=== PATIENT | female | born 1965 | race Caucasian/White ===

== ENCOUNTER 2017-03-11 13:15 | Emergency (ER) | payer OTHER ==
[2017-03-11 17:08] LABS: ADD UMIC YES; UR ASCORBIC ACID NEGATIVE (NEGATIVE); UR BACTERIA FEW /HPF (NONE SEEN); UR BILIRUBIN (Dip) NEGATIVE (NEGATIVE); UR BLOOD (Dip) 1+ mg/dL (NEGATIVE); UR CLARITY SLIGHTLY CLOUDY (CLEAR); UR COLOR STRAW (YELLOW); UR GLUCOSE (Dip) NEGATIVE (NEGATIVE); UR KETONES (Dip) NEGATIVE (NEGATIVE); UR LEUKOCYTE ESTERASE (Dip) NEGATIVE Leu/ul (NEGATIVE); UR NITRITE (Dip) NEGATIVE (NEGATIVE); UR RBC 1 /HPF (0-5); UR SPECIFIC GRAVITY (Dip) 1.005 (1.003-1.030); UR SQUAMOUS EPITHELIAL CELL FEW /HPF (FEW); UR TOTAL PROTEIN (Dip) NEGATIVE (NEGATIVE); UR UROBILINOGEN (Dip) NEGATIVE (NEGATIVE); UR WBC 2 /HPF (0-5)
[2017-03-11] MEDS: SOD CHLORIDE 0.9% 1,000 ML IV (17:17)
[2017-03-11 17:28] LABS: ADD MAN DIFF? NO
[2017-03-11 17:36] LABS: WHITE BLOOD COUNT 6.4 10^3/ul (4.8-10.8)
[2017-03-11 17:36] LABS: BASOPHIL # 0.1 10^3/ul (0.0-0.1); BASOPHILS % 0.8 % (0.0-2.0); EOSINOPHILS # 0.2 10^3/ul (0.0-0.5); EOSINOPHILS % 3.5 % (0.0-7.0); HEMATOCRIT 40.9 % (37.0-47.0); HEMOGLOBIN 13.8 g/dl (12.0-16.0); LYMPHOCYTES # 2.5 10^3/ul (0.8-2.9); LYMPHOCYTES % 39.2 % (15.0-51.0); MEAN CORPUSCULAR HEMOGLOBIN 29.5 pg (29.0-33.0); MEAN CORPUSCULAR HGB CONC 33.7 g/dl (32.0-37.0); MEAN CORPUSCULAR VOLUME 87.4 fl (82.0-101.0); MEAN PLATELET VOLUME 10.3 fl (7.4-10.4); MONOCYTE # 0.4 10^3/ul (0.3-0.9); MONOCYTES % 6.6 % (0.0-11.0); NEUTROPHIL # 3.2 10^3/ul (1.6-7.5); NEUTROPHILS % 49.6 % (39.0-77.0); PLATELET COUNT 262 10^3/UL (140-415); RED BLOOD COUNT 4.68 10^6/ul (4.20-5.40); RED CELL DISTRIBUTION WIDTH 13.5 % (11.5-14.5)
[2017-03-11 18:05] LABS: ALANINE AMINOTRANSFERASE 25 IU/L (13-69); ALBUMIN 4.9 g/dl (3.3-4.9); ALKALINE PHOSPHATASE 101 IU/L (42-121); ANION GAP 16 (8-16); ASPARTATE AMINO TRANSFERASE 27 IU/L (15-46); BILIRUBIN,INDIRECT 0.2 mg/dl (0-1.1); BILIRUBIN,TOTAL 0.2 mg/dl (0.2-1.3); BLOOD UREA NITROGEN 15 mg/dl (7-20); CARBON DIOXIDE 26 mmol/L (21-31); CHLORIDE 105 mmol/L (97-110); CREATININE 0.81 mg/dl (0.44-1.00); GLUCOSE 93 mg/dl (70-220); LIPASE 101 U/L (23-300); POTASSIUM 3.7 mmol/L (3.5-5.1); SODIUM 143 mmol/L (135-144); TOTAL PROTEIN 8.4 g/dl (6.1-8.1)
[2017-03-11] MEDS: morphine 4 MG/ML VIAL IV (18:09)
== END 2017-03-11 19:24 | disposition home or self-care (01) ==
LOC: FTE 13:15
DX: K57.90 Diverticulosis of intestine, part unspecified, without perforation or abscess without bleeding (principal); R16.0 Hepatomegaly, not elsewhere classified; I10 Essential (primary) hypertension
CPT/HCPCS: 36415; 74176; 80053; 81001; 83690; 85025; 96374; 99285-25

== ENCOUNTER 2017-04-25 13:29 | Emergency (ER) | payer OTHER ==
[2017-04-25] MEDS ORDERED: LORAZEPAM 2 MG INJ (14:05)
[2017-04-25] MEDS: LORAZEPAM 2 MG INJ IV (14:07)
[2017-04-25 14:10] LABS: ADD MAN DIFF? NO
[2017-04-25 14:12] LABS: WHITE BLOOD COUNT 7.5 10^3/ul (4.8-10.8)
[2017-04-25 14:12] LABS: BASOPHIL # 0.1 10^3/ul (0.0-0.1); BASOPHILS % 0.8 % (0.0-2.0); EOSINOPHILS # 0.2 10^3/ul (0.0-0.5); EOSINOPHILS % 2.8 % (0.0-7.0); HEMATOCRIT 43.3 % (37.0-47.0); HEMOGLOBIN 14.3 g/dl (12.0-16.0); LYMPHOCYTES % 39.9 % (15.0-51.0); MEAN CORPUSCULAR HEMOGLOBIN 29.1 pg (29.0-33.0); MEAN CORPUSCULAR VOLUME 88.2 fl (82.0-101.0); MEAN PLATELET VOLUME 10.4 fl (7.4-10.4); MONOCYTE # 0.6 10^3/ul (0.3-0.9); MONOCYTES % 7.5 % (0.0-11.0); NEUTROPHIL # 3.6 10^3/ul (1.6-7.5); NEUTROPHILS % 48.3 % (39.0-77.0); PLATELET COUNT 278 10^3/UL (140-415); RED BLOOD COUNT 4.91 10^6/ul (4.20-5.40); RED CELL DISTRIBUTION WIDTH 12.9 % (11.5-14.5)
[2017-04-25 14:30] LABS: ALANINE AMINOTRANSFERASE 133 IU/L (13-69); ALBUMIN/GLOBULIN RATIO 1.38; ALKALINE PHOSPHATASE 125 IU/L (42-121); ANION GAP 21 (8-16); ASPARTATE AMINO TRANSFERASE 59 IU/L (15-46); BILIRUBIN,INDIRECT 0.2 mg/dl (0-1.1); BILIRUBIN,TOTAL 0.2 mg/dl (0.2-1.3); BLOOD UREA NITROGEN 16 mg/dl (7-20); CALCIUM 10.3 mg/dl (8.4-10.2); CARBON DIOXIDE 25 mmol/L (21-31); CHLORIDE 104 mmol/L (97-110); GLUCOSE 98 mg/dl (70-220); SODIUM 146 mmol/L (135-144); TOTAL PROTEIN 8.6 g/dl (6.1-8.1)
[2017-04-25] MEDS: SOD CHLORIDE 0.9% 1,000 ML IV (14:46)
[2017-04-25] MEDS: LEVETIRACETAM 1000 MG (PMX) 100 ML IVPB (15:14)
[2017-04-25 15:53] LABS: ADD UMIC YES; UR ASCORBIC ACID NEGATIVE (NEGATIVE); UR BILIRUBIN (Dip) NEGATIVE (NEGATIVE); UR BLOOD (Dip) 1+ mg/dL (NEGATIVE); UR CLARITY CLEAR (CLEAR); UR COLOR STRAW (YELLOW); UR GLUCOSE (Dip) NEGATIVE (NEGATIVE); UR KETONES (Dip) NEGATIVE (NEGATIVE); UR LEUKOCYTE ESTERASE (Dip) NEGATIVE Leu/ul (NEGATIVE); UR NITRITE (Dip) NEGATIVE (NEGATIVE); UR RBC 1 /HPF (0-5); UR SPECIFIC GRAVITY (Dip) 1.008 (1.003-1.030); UR TOTAL PROTEIN (Dip) NEGATIVE (NEGATIVE); UR UROBILINOGEN (Dip) NEGATIVE (NEGATIVE); UR WBC 1 /HPF (0-5)
== END 2017-04-25 17:03 | disposition home or self-care (01) ==
LOC: E/R 13:29
DX: R56.9 Unspecified convulsions (principal); R74.0 Nonspecific elevation of levels of transaminase and lactic acid dehydrogenase [LDH]; E87.2 Acidosis; I10 Essential (primary) hypertension; E03.9 Hypothyroidism, unspecified; Z79.82 Long term (current) use of aspirin
CPT/HCPCS: 36415; 70450; 71045; 80053; 81001; 82962; 85025; 96374; 96375; 99285-25

== ENCOUNTER 2017-05-11 17:12 | Emergency (ER) | payer OTHER ==
[2017-05-11] MEDS: SOD CHLORIDE 0.9% 1,000 ML IV (18:09)
[2017-05-11] MEDS: LORAZEPAM 2 MG INJ IV (18:09)
[2017-05-11] MEDS: LEVETIRACETAM 1000 MG (PMX) 100 ML IVPB (18:53)
[2017-05-11 19:03] LABS: ADD MAN DIFF? NO
[2017-05-11 19:06] LABS: BASOPHIL # 0.1 10^3/ul (0.0-0.1); BASOPHILS % 0.6 % (0.0-2.0); EOSINOPHILS # 0.2 10^3/ul (0.0-0.5); EOSINOPHILS % 2.1 % (0.0-7.0); HEMATOCRIT 38.6 % (37.0-47.0); HEMOGLOBIN 12.8 g/dl (12.0-16.0); LYMPHOCYTES # 2.1 10^3/ul (0.8-2.9); LYMPHOCYTES % 22.1 % (15.0-51.0); MEAN CORPUSCULAR HEMOGLOBIN 29.6 pg (29.0-33.0); MEAN CORPUSCULAR HGB CONC 33.2 g/dl (32.0-37.0); MEAN CORPUSCULAR VOLUME 89.1 fl (82.0-101.0); MEAN PLATELET VOLUME 10.5 fl (7.4-10.4); MONOCYTE # 0.7 10^3/ul (0.3-0.9); MONOCYTES % 7.7 % (0.0-11.0); NEUTROPHIL # 6.4 10^3/ul (1.6-7.5); NEUTROPHILS % 67.2 % (39.0-77.0); PLATELET COUNT 265 10^3/UL (140-415); RED BLOOD COUNT 4.33 10^6/ul (4.20-5.40); RED CELL DISTRIBUTION WIDTH 12.6 % (11.5-14.5)
[2017-05-11 19:06] LABS: WHITE BLOOD COUNT 9.5 10^3/ul (4.8-10.8)
[2017-05-11 19:27] LABS: INR 0.91; PROTIME 12.3 Sec (11.9-14.9)
[2017-05-11 19:28] LABS: PARTIAL THROMBOPLASTIN TIME 31.1 Sec (25.0-35.0)
[2017-05-11 19:30] LABS: ALANINE AMINOTRANSFERASE 67 IU/L (13-69); ALBUMIN 4.3 g/dl (3.3-4.9); ALBUMIN/GLOBULIN RATIO 1.34; ALKALINE PHOSPHATASE 109 IU/L (42-121); ANION GAP 20 (8-16); ASPARTATE AMINO TRANSFERASE 30 IU/L (15-46); BILIRUBIN,INDIRECT 0.1 mg/dl (0-1.1); BILIRUBIN,TOTAL 0.1 mg/dl (0.2-1.3); BLOOD UREA NITROGEN 19 mg/dl (7-20); CALCIUM 9.2 mg/dl (8.4-10.2); CARBON DIOXIDE 22 mmol/L (21-31); CHLORIDE 109 mmol/L (97-110); CREATININE 0.95 mg/dl (0.44-1.00); GLUCOSE 105 mg/dl (70-220); POTASSIUM 4.2 mmol/L (3.5-5.1); SODIUM 147 mmol/L (135-144); TOTAL PROTEIN 7.5 g/dl (6.1-8.1)
[2017-05-11 19:33] LABS: ETHANOL < 10.0 mg/dl
[2017-05-11 19:42] LABS: TROPONIN-I < 0.012 ng/ml (0.00-0.12)
[2017-05-11] MEDS: KETOROLAC 30 MG INJ IV (23:14)
== END 2017-05-11 23:38 | disposition home or self-care (01) ==
LOC: E/R 23:38
DX: R56.9 Unspecified convulsions (principal); I10 Essential (primary) hypertension; R07.9 Chest pain, unspecified; Z79.82 Long term (current) use of aspirin
CPT/HCPCS: 70450; 80053; 80306; 84484; 85025; 85610; 85730; 93005; 96374; 96375; 99285-25

== ENCOUNTER 2017-05-23 02:08 | Inpatient (IN) | payer OTHER ==
[2017-05-23] MEDS ORDERED: LORAZEPAM 2 MG INJ (02:19)
[2017-05-23] MEDS: LORAZEPAM 2 MG INJ IV ×2 (02:39→17:02)
[2017-05-23] MEDS: LEVETIRACETAM 1000 MG (PMX) 100 ML IVPB (02:46)
[2017-05-23 03:20] LABS: ADD MAN DIFF? NO
[2017-05-23 03:22] LABS: WHITE BLOOD COUNT 7.2 10^3/ul (4.8-10.8)
[2017-05-23 03:22] LABS: BASOPHIL # 0.1 10^3/ul (0.0-0.1); BASOPHILS % 0.8 % (0.0-2.0); EOSINOPHILS # 0.4 10^3/ul (0.0-0.5); EOSINOPHILS % 5.2 % (0.0-7.0); HEMOGLOBIN 12.5 g/dl (12.0-16.0); LYMPHOCYTES # 2.9 10^3/ul (0.8-2.9); LYMPHOCYTES % 40.7 % (15.0-51.0); MEAN CORPUSCULAR HEMOGLOBIN 29.3 pg (29.0-33.0); MEAN CORPUSCULAR HGB CONC 32.9 g/dl (32.0-37.0); MEAN PLATELET VOLUME 10.6 fl (7.4-10.4); MONOCYTE # 0.6 10^3/ul (0.3-0.9); NEUTROPHIL # 3.2 10^3/ul (1.6-7.5); NEUTROPHILS % 45.2 % (39.0-77.0); PLATELET COUNT 231 10^3/UL (140-415); RED BLOOD COUNT 4.27 10^6/ul (4.20-5.40); RED CELL DISTRIBUTION WIDTH 12.9 % (11.5-14.5)
[2017-05-23 03:50] LABS: ANION GAP 16 (8-16); BLOOD UREA NITROGEN 18 mg/dl (7-20); CALCIUM 9.4 mg/dl (8.4-10.2); CARBON DIOXIDE 25 mmol/L (21-31); CHLORIDE 110 mmol/L (97-110); CREATININE 0.71 mg/dl (0.44-1.00); GLUCOSE 92 mg/dl (70-220); POTASSIUM 3.8 mmol/L (3.5-5.1); SODIUM 147 mmol/L (135-144)
[2017-05-23] MEDS ORDERED: NACL 0.9% 3 ML SYG IV (07:30)
[2017-05-23] MEDS ORDERED: ALBUTEROL/IPRATROPIUM (NEB) 3 ML AMP HHN (07:30)
[2017-05-23] MEDS ORDERED: LEVETIRACETAM 750 MG TAB PO ×2 (09:00→21:00)
[2017-05-23] MEDS: LOSARTAN 50 MG TAB PO (09:38)
[2017-05-23] MEDS: ASPIRIN (EC) 81 MG TAB PO (09:39)
[2017-05-23] MEDS: ACETAMINOPHEN 325 MG TAB PO (09:44)
[2017-05-23] MEDS: LEVETIRACETAM 750 MG TAB PO (11:01)
[2017-05-23] MEDS ORDERED: TOPIRAMATE SPRINKLE 25 MG CAP PO (21:00)
[2017-05-23] MEDS: LEVETIRACETAM 500 MG TAB PO (21:33)
[2017-05-23] MEDS: TOPIRAMATE SPRINKLE 25 MG CAP PO (23:33)
[2017-05-24] MEDS: LEVOTHYROXINE 50 MCG TAB PO (06:04)
[2017-05-24] MEDS: LOSARTAN 50 MG TAB PO (08:37)
[2017-05-24] MEDS: LEVETIRACETAM 500 MG TAB PO ×2 (08:37→20:18)
[2017-05-24] MEDS: ASPIRIN (EC) 81 MG TAB PO (08:37)
[2017-05-24 08:57] LABS: ADD MAN DIFF? NO
[2017-05-24 08:58] LABS: BASOPHILS % 0.6 % (0.0-2.0); EOSINOPHILS # 0.3 10^3/ul (0.0-0.5); EOSINOPHILS % 5.1 % (0.0-7.0); HEMATOCRIT 42.9 % (37.0-47.0); HEMOGLOBIN 13.9 g/dl (12.0-16.0); LYMPHOCYTES # 2.2 10^3/ul (0.8-2.9); LYMPHOCYTES % 35.4 % (15.0-51.0); MEAN CORPUSCULAR HGB CONC 32.4 g/dl (32.0-37.0); MEAN CORPUSCULAR VOLUME 89.6 fl (82.0-101.0); MEAN PLATELET VOLUME 10.7 fl (7.4-10.4); MONOCYTE # 0.4 10^3/ul (0.3-0.9); MONOCYTES % 6.7 % (0.0-11.0); NEUTROPHIL # 3.3 10^3/ul (1.6-7.5); NEUTROPHILS % 51.9 % (39.0-77.0); PLATELET COUNT 256 10^3/UL (140-415); RED BLOOD COUNT 4.79 10^6/ul (4.20-5.40); RED CELL DISTRIBUTION WIDTH 12.8 % (11.5-14.5)
[2017-05-24 08:58] LABS: WHITE BLOOD COUNT 6.3 10^3/ul (4.8-10.8)
[2017-05-24 09:33] LABS: ALANINE AMINOTRANSFERASE 49 IU/L (13-69); ALBUMIN 4.3 g/dl (3.3-4.9); ALKALINE PHOSPHATASE 97 IU/L (42-121); ANION GAP 16 (8-16); ASPARTATE AMINO TRANSFERASE 30 IU/L (15-46); BILIRUBIN,INDIRECT 0.2 mg/dl (0-1.1); BILIRUBIN,TOTAL 0.2 mg/dl (0.2-1.3); BLOOD UREA NITROGEN 18 mg/dl (7-20); CALCIUM 9.6 mg/dl (8.4-10.2); CARBON DIOXIDE 26 mmol/L (21-31); CHLORIDE 108 mmol/L (97-110); CHOL/HDL RATIO 3.3 RATIO; CHOLESTEROL 203 mg/dl (100-200); CREATININE 0.73 mg/dl (0.44-1.00); GLUCOSE 80 mg/dl (70-220); HDL CHOLESTEROL 60 mg/dl (37-92); LDL CHOLESTEROL,CALCULATED 118 mg/dl; MAGNESIUM 1.9 mg/dl (1.7-2.5); POTASSIUM 3.7 mmol/L (3.5-5.1); SODIUM 146 mmol/L (135-144); TOTAL PROTEIN 7.6 g/dl (6.1-8.1); TRIGLYCERIDES 126 mg/dl (0-149)
[2017-05-24 10:18] LABS: HEMOGLOBIN A1C 5.5 % (0-5.9)
[2017-05-24] MEDS: LORAZEPAM 2 MG INJ IV (13:35)
[2017-05-24] MEDS: morphine 2 MG INJ IV (19:46)
[2017-05-24] MEDS: ACETAMINOPHEN 325 MG TAB PO (20:18)
[2017-05-24] MEDS: TOPIRAMATE 25 MG TAB PO (20:19)
[2017-05-25] MEDS: LEVOTHYROXINE 50 MCG TAB PO (06:32)
[2017-05-25] MEDS: LOSARTAN 50 MG TAB PO (09:08)
[2017-05-25] MEDS: LEVETIRACETAM 500 MG TAB PO ×2 (09:08→20:37)
[2017-05-25] MEDS: ASPIRIN (EC) 81 MG TAB PO (09:08)
[2017-05-25 09:10] LABS: ADD MAN DIFF? NO
[2017-05-25 09:13] LABS: WHITE BLOOD COUNT 6.4 10^3/ul (4.8-10.8)
[2017-05-25 09:13] LABS: BASOPHIL # 0.1 10^3/ul (0.0-0.1); BASOPHILS % 0.8 % (0.0-2.0); EOSINOPHILS # 0.3 10^3/ul (0.0-0.5); EOSINOPHILS % 5.2 % (0.0-7.0); HEMATOCRIT 40.1 % (37.0-47.0); LYMPHOCYTES # 2.4 10^3/ul (0.8-2.9); LYMPHOCYTES % 36.9 % (15.0-51.0); MEAN CORPUSCULAR HGB CONC 32.4 g/dl (32.0-37.0); MEAN CORPUSCULAR VOLUME 89.3 fl (82.0-101.0); MEAN PLATELET VOLUME 10.2 fl (7.4-10.4); MONOCYTE # 0.5 10^3/ul (0.3-0.9); MONOCYTES % 7.7 % (0.0-11.0); NEUTROPHIL # 3.1 10^3/ul (1.6-7.5); NEUTROPHILS % 49.1 % (39.0-77.0); PLATELET COUNT 253 10^3/UL (140-415); RED BLOOD COUNT 4.49 10^6/ul (4.20-5.40); RED CELL DISTRIBUTION WIDTH 12.7 % (11.5-14.5)
[2017-05-25] MEDS: TOPIRAMATE 25 MG TAB PO ×2 (09:13→20:37)
[2017-05-25 09:37] LABS: ANION GAP 16 (8-16); BLOOD UREA NITROGEN 21 mg/dl (7-20); CALCIUM 9.5 mg/dl (8.4-10.2); CARBON DIOXIDE 22 mmol/L (21-31); CHLORIDE 111 mmol/L (97-110); CREATININE 0.72 mg/dl (0.44-1.00); GLUCOSE 94 mg/dl (70-220); POTASSIUM 3.9 mmol/L (3.5-5.1); SODIUM 145 mmol/L (135-144)
[2017-05-25] MEDS: ACETAMINOPHEN 325 MG TAB PO (16:29)
[2017-05-25] MEDS: FOSPHENYTOIN (PE) 1,000 MG in SOD CHLORIDE 0.9% 80 ML IVPB (18:46)
[2017-05-25] MEDS: PHENYTOIN 100 MG CAP PO (20:37)
[2017-05-26] MEDS: LORAZEPAM 2 MG INJ IV (00:12)
[2017-05-26] MEDS: LEVOTHYROXINE 50 MCG TAB PO (07:32)
[2017-05-26] MEDS: ASPIRIN (EC) 81 MG TAB PO (08:32)
[2017-05-26] MEDS: PHENYTOIN 100 MG CAP PO ×3 (08:32→21:06)
[2017-05-26] MEDS: LEVETIRACETAM 500 MG TAB PO ×2 (08:32→21:06)
[2017-05-26] MEDS: TOPIRAMATE 25 MG TAB PO (08:33)
[2017-05-26] MEDS: LOSARTAN 50 MG TAB PO (08:33)
[2017-05-26 08:56] LABS: ADD MAN DIFF? NO
[2017-05-26 09:05] LABS: WHITE BLOOD COUNT 6.5 10^3/ul (4.8-10.8)
[2017-05-26 09:05] LABS: BASOPHIL # 0.1 10^3/ul (0.0-0.1); BASOPHILS % 1.1 % (0.0-2.0); EOSINOPHILS # 0.3 10^3/ul (0.0-0.5); EOSINOPHILS % 4.8 % (0.0-7.0); HEMATOCRIT 40.8 % (37.0-47.0); HEMOGLOBIN 13.6 g/dl (12.0-16.0); LYMPHOCYTES # 1.3 10^3/ul (0.8-2.9); LYMPHOCYTES % 19.3 % (15.0-51.0); MEAN CORPUSCULAR HGB CONC 33.3 g/dl (32.0-37.0); MEAN PLATELET VOLUME 10.3 fl (7.4-10.4); MONOCYTE # 0.5 10^3/ul (0.3-0.9); NEUTROPHIL # 4.3 10^3/ul (1.6-7.5); NEUTROPHILS % 66.6 % (39.0-77.0); PLATELET COUNT 245 10^3/UL (140-415); RED BLOOD COUNT 4.69 10^6/ul (4.20-5.40); RED CELL DISTRIBUTION WIDTH 12.9 % (11.5-14.5)
[2017-05-26 09:28] LABS: ANION GAP 18 (8-16); BLOOD UREA NITROGEN 15 mg/dl (7-20); CALCIUM 9.4 mg/dl (8.4-10.2); CARBON DIOXIDE 21 mmol/L (21-31); CHLORIDE 110 mmol/L (97-110); CREATININE 0.74 mg/dl (0.44-1.00); GLUCOSE 85 mg/dl (70-220); POTASSIUM 4.2 mmol/L (3.5-5.1); SODIUM 145 mmol/L (135-144)
[2017-05-26] MEDS ORDERED: TOPIRAMATE 25 MG TAB PO (21:00)
[2017-05-26] MEDS: ACETAMINOPHEN 325 MG TAB PO (21:07)
[2017-05-26] MEDS: TOPIRAMATE 100 MG TAB PO (21:33)
[2017-05-27] MEDS: LEVOTHYROXINE 50 MCG TAB PO (06:44)
[2017-05-27 06:55] LABS: ADD MAN DIFF? NO
[2017-05-27 07:03] LABS: BASOPHIL # 0.1 10^3/ul (0.0-0.1); BASOPHILS % 0.8 % (0.0-2.0); EOSINOPHILS # 0.6 10^3/ul (0.0-0.5); EOSINOPHILS % 8.9 % (0.0-7.0); HEMATOCRIT 41.7 % (37.0-47.0); HEMOGLOBIN 13.6 g/dl (12.0-16.0); LYMPHOCYTES # 1.9 10^3/ul (0.8-2.9); LYMPHOCYTES % 28.9 % (15.0-51.0); MEAN CORPUSCULAR HEMOGLOBIN 28.9 pg (29.0-33.0); MEAN CORPUSCULAR HGB CONC 32.6 g/dl (32.0-37.0); MEAN CORPUSCULAR VOLUME 88.7 fl (82.0-101.0); MEAN PLATELET VOLUME 10.3 fl (7.4-10.4); MONOCYTE # 0.7 10^3/ul (0.3-0.9); MONOCYTES % 10.2 % (0.0-11.0); NEUTROPHIL # 3.4 10^3/ul (1.6-7.5); PLATELET COUNT 244 10^3/UL (140-415); RED CELL DISTRIBUTION WIDTH 12.8 % (11.5-14.5)
[2017-05-27 07:03] LABS: WHITE BLOOD COUNT 6.6 10^3/ul (4.8-10.8)
[2017-05-27 07:18] LABS: ANION GAP 17 (8-16); BLOOD UREA NITROGEN 23 mg/dl (7-20); CALCIUM 9.3 mg/dl (8.4-10.2); CARBON DIOXIDE 20 mmol/L (21-31); CHLORIDE 114 mmol/L (97-110); CREATININE 0.82 mg/dl (0.44-1.00); GLUCOSE 99 mg/dl (70-220); POTASSIUM 4.4 mmol/L (3.5-5.1); SODIUM 147 mmol/L (135-144)
[2017-05-27 07:24] LABS: MAGNESIUM 2.1 mg/dl (1.7-2.5)
[2017-05-27 07:24] LABS: PHOSPHORUS 3.7 mg/dl (2.5-4.9)
[2017-05-27] MEDS: LOSARTAN 50 MG TAB PO (08:57)
[2017-05-27] MEDS: LEVETIRACETAM 500 MG TAB PO ×2 (08:59→20:42)
[2017-05-27] MEDS: PHENYTOIN 100 MG CAP PO ×3 (08:59→20:41)
[2017-05-27] MEDS: ASPIRIN (EC) 81 MG TAB PO (09:00)
[2017-05-27] MEDS: TOPIRAMATE 100 MG TAB PO ×2 (09:06→20:41)
[2017-05-27] MEDS: LORAZEPAM 2 MG INJ IV (10:52)
[2017-05-27] MEDS: morphine 2 MG INJ IV (12:50)
[2017-05-28] MEDS: morphine 2 MG INJ IV ×2 (00:17→09:28)
[2017-05-28 06:03] LABS: ADD MAN DIFF? NO
[2017-05-28 06:06] LABS: WHITE BLOOD COUNT 7.5 10^3/ul (4.8-10.8)
[2017-05-28 06:06] LABS: BASOPHIL # 0.1 10^3/ul (0.0-0.1); BASOPHILS % 0.7 % (0.0-2.0); EOSINOPHILS # 0.5 10^3/ul (0.0-0.5); HEMATOCRIT 40.7 % (37.0-47.0); HEMOGLOBIN 13.2 g/dl (12.0-16.0); LYMPHOCYTES # 2.6 10^3/ul (0.8-2.9); LYMPHOCYTES % 34.2 % (15.0-51.0); MEAN CORPUSCULAR HGB CONC 32.4 g/dl (32.0-37.0); MEAN CORPUSCULAR VOLUME 89.5 fl (82.0-101.0); MEAN PLATELET VOLUME 10.2 fl (7.4-10.4); MONOCYTE # 0.7 10^3/ul (0.3-0.9); NEUTROPHIL # 3.7 10^3/ul (1.6-7.5); PLATELET COUNT 249 10^3/UL (140-415); RED BLOOD COUNT 4.55 10^6/ul (4.20-5.40); RED CELL DISTRIBUTION WIDTH 12.8 % (11.5-14.5)
[2017-05-28] MEDS: LEVOTHYROXINE 50 MCG TAB PO (06:17)
[2017-05-28 06:21] LABS: ANION GAP 16 (8-16); BLOOD UREA NITROGEN 22 mg/dl (7-20); CALCIUM 9.3 mg/dl (8.4-10.2); CARBON DIOXIDE 23 mmol/L (21-31); CHLORIDE 112 mmol/L (97-110); CREATININE 0.94 mg/dl (0.44-1.00); GLUCOSE 85 mg/dl (70-220); POTASSIUM 4.9 mmol/L (3.5-5.1); SODIUM 146 mmol/L (135-144)
[2017-05-28] MEDS: TOPIRAMATE 100 MG TAB PO ×2 (09:28→20:22)
[2017-05-28] MEDS: LEVETIRACETAM 500 MG TAB PO ×2 (09:28→20:22)
[2017-05-28] MEDS: LOSARTAN 50 MG TAB PO (09:29)
[2017-05-28] MEDS: PHENYTOIN 100 MG CAP PO ×3 (09:29→20:22)
[2017-05-28] MEDS: ASPIRIN (EC) 81 MG TAB PO (09:29)
[2017-05-28] MEDS: LORAZEPAM 2 MG INJ IV (10:11)
[2017-05-28] MEDS: morphine LIQ (10 MG/5 ML) CUP PO (23:21)
[2017-05-29] MEDS: LORAZEPAM 2 MG INJ IV ×2 (03:23→03:42)
[2017-05-29] MEDS: LEVETIRACETAM 500 MG (PMX) 100 ML IVPB (04:12)
[2017-05-29 05:54] LABS: ADD MAN DIFF? NO
[2017-05-29 05:59] LABS: WHITE BLOOD COUNT 5.6 10^3/ul (4.8-10.8)
[2017-05-29 05:59] LABS: BASOPHIL # 0.1 10^3/ul (0.0-0.1); BASOPHILS % 1.3 % (0.0-2.0); EOSINOPHILS # 0.4 10^3/ul (0.0-0.5); EOSINOPHILS % 7.4 % (0.0-7.0); HEMATOCRIT 40.5 % (37.0-47.0); HEMOGLOBIN 13.5 g/dl (12.0-16.0); LYMPHOCYTES % 35.6 % (15.0-51.0); MEAN CORPUSCULAR HEMOGLOBIN 29.4 pg (29.0-33.0); MEAN CORPUSCULAR HGB CONC 33.3 g/dl (32.0-37.0); MEAN CORPUSCULAR VOLUME 88.2 fl (82.0-101.0); MEAN PLATELET VOLUME 10.1 fl (7.4-10.4); MONOCYTE # 0.5 10^3/ul (0.3-0.9); MONOCYTES % 8.5 % (0.0-11.0); NEUTROPHIL # 2.6 10^3/ul (1.6-7.5); PLATELET COUNT 230 10^3/UL (140-415); RED BLOOD COUNT 4.59 10^6/ul (4.20-5.40); RED CELL DISTRIBUTION WIDTH 12.9 % (11.5-14.5)
[2017-05-29 06:19] LABS: MAGNESIUM 1.9 mg/dl (1.7-2.5)
[2017-05-29 06:19] LABS: PHOSPHORUS 4.1 mg/dl (2.5-4.9)
[2017-05-29] MEDS: LEVOTHYROXINE 50 MCG TAB PO (06:35)
[2017-05-29 06:49] LABS: ANION GAP 16 (8-16); BLOOD UREA NITROGEN 19 mg/dl (7-20); CALCIUM 9.3 mg/dl (8.4-10.2); CARBON DIOXIDE 22 mmol/L (21-31); CHLORIDE 110 mmol/L (97-110); CREATININE 0.77 mg/dl (0.44-1.00); GLUCOSE 89 mg/dl (70-220); POTASSIUM 3.8 mmol/L (3.5-5.1); SODIUM 144 mmol/L (135-144)
[2017-05-29 08:53] LABS: PHENYTOIN (DILANTIN) 7.8 ug/ml (10.0-20.0)
[2017-05-29] MEDS: LEVETIRACETAM 500 MG TAB PO ×2 (10:09→21:16)
[2017-05-29] MEDS: ONDANSETRON 4 MG INJ IV (10:09)
[2017-05-29] MEDS: ASPIRIN (EC) 81 MG TAB PO (10:10)
[2017-05-29] MEDS: TOPIRAMATE 100 MG TAB PO ×2 (10:10→22:34)
[2017-05-29] MEDS: PHENYTOIN 100 MG CAP PO ×3 (10:10→21:16)
[2017-05-29] MEDS: LOSARTAN 50 MG TAB PO (10:16)
[2017-05-29] MEDS: morphine LIQ (10 MG/5 ML) CUP PO (21:16)
[2017-05-30] MEDS: LEVOTHYROXINE 50 MCG TAB PO (06:15)
[2017-05-30] MEDS: morphine LIQ (10 MG/5 ML) CUP PO (08:16)
[2017-05-30] MEDS: LOSARTAN 50 MG TAB PO (09:00)
[2017-05-30] MEDS: PHENYTOIN 100 MG CAP PO ×3 (09:18→21:04)
[2017-05-30] MEDS: LEVETIRACETAM 500 MG TAB PO ×2 (09:18→21:04)
[2017-05-30] MEDS: ASPIRIN (EC) 81 MG TAB PO (09:18)
[2017-05-30] MEDS: TOPIRAMATE 100 MG TAB PO ×2 (09:18→21:04)
[2017-05-30] MEDS: LORAZEPAM 2 MG INJ IV ×2 (18:35→22:23)
[2017-05-30] MEDS: ACETAMINOPHEN 325 MG TAB PO (21:04)
[2017-05-30] MEDS: LEVETIRACETAM 500 MG (PMX) 100 ML IVPB (23:21)
[2017-05-31 05:14] LABS: ADD MAN DIFF? NO
[2017-05-31 05:19] LABS: BASOPHIL # 0.1 10^3/ul (0.0-0.1); EOSINOPHILS # 0.3 10^3/ul (0.0-0.5); EOSINOPHILS % 5.6 % (0.0-7.0); HEMATOCRIT 37.8 % (37.0-47.0); HEMOGLOBIN 12.6 g/dl (12.0-16.0); LYMPHOCYTES # 2.3 10^3/ul (0.8-2.9); LYMPHOCYTES % 39.9 % (15.0-51.0); MEAN CORPUSCULAR HEMOGLOBIN 29.4 pg (29.0-33.0); MEAN CORPUSCULAR HGB CONC 33.3 g/dl (32.0-37.0); MEAN CORPUSCULAR VOLUME 88.3 fl (82.0-101.0); MEAN PLATELET VOLUME 10.1 fl (7.4-10.4); MONOCYTE # 0.6 10^3/ul (0.3-0.9); MONOCYTES % 9.9 % (0.0-11.0); NEUTROPHIL # 2.6 10^3/ul (1.6-7.5); NEUTROPHILS % 43.4 % (39.0-77.0); PLATELET COUNT 235 10^3/UL (140-415); RED BLOOD COUNT 4.28 10^6/ul (4.20-5.40); RED CELL DISTRIBUTION WIDTH 12.8 % (11.5-14.5)
[2017-05-31 05:19] LABS: WHITE BLOOD COUNT 5.9 10^3/ul (4.8-10.8)
[2017-05-31 05:58] LABS: ANION GAP 15 (8-16); BLOOD UREA NITROGEN 14 mg/dl (7-20); CARBON DIOXIDE 24 mmol/L (21-31); CHLORIDE 109 mmol/L (97-110); GLUCOSE 96 mg/dl (70-220); MAGNESIUM 2.1 mg/dl (1.7-2.5); PHOSPHORUS 4.3 mg/dl (2.5-4.9); POTASSIUM 4.1 mmol/L (3.5-5.1); SODIUM 144 mmol/L (135-144)
[2017-05-31] MEDS: LEVOTHYROXINE 50 MCG TAB PO (07:07)
[2017-05-31] MEDS: LEVETIRACETAM 500 MG TAB PO ×2 (08:33→20:09)
[2017-05-31] MEDS: ASPIRIN (EC) 81 MG TAB PO (08:33)
[2017-05-31] MEDS: PHENYTOIN 100 MG CAP PO ×3 (08:33→20:09)
[2017-05-31] MEDS: TOPIRAMATE 100 MG TAB PO ×2 (08:33→20:10)
[2017-05-31] MEDS: LOSARTAN 50 MG TAB PO (08:34)
[2017-05-31] MEDS ORDERED: POLYETHYLENE GLYCOL 17 GM PACKET GTB (16:00)
[2017-05-31] MEDS: morphine LIQ (10 MG/5 ML) CUP PO (20:13)
[2017-06-01] MEDS: ACETAMINOPHEN 325 MG TAB PO ×2 (05:33→16:29)
[2017-06-01] MEDS: LEVOTHYROXINE 50 MCG TAB PO (06:16)
[2017-06-01 06:51] LABS: PHENYTOIN (DILANTIN) 7.8 ug/ml (10.0-20.0)
[2017-06-01] MEDS: PHENYTOIN 100 MG CAP PO ×3 (09:04→20:42)
[2017-06-01] MEDS: LEVETIRACETAM 500 MG TAB PO ×2 (09:04→20:43)
[2017-06-01] MEDS: ASPIRIN (EC) 81 MG TAB PO (09:05)
[2017-06-01] MEDS: LOSARTAN 50 MG TAB PO (09:05)
[2017-06-01] MEDS: TOPIRAMATE 100 MG TAB PO ×2 (09:05→20:43)
[2017-06-02] MEDS: ACETAMINOPHEN 325 MG TAB PO ×3 (05:36→22:49)
[2017-06-02] MEDS: LORAZEPAM 2 MG INJ IV ×2 (06:08→23:49)
[2017-06-02 06:49] LABS: PHENYTOIN (DILANTIN) 11.3 ug/ml (10.0-20.0)
[2017-06-02] MEDS: LEVOTHYROXINE 50 MCG TAB PO (07:21)
[2017-06-02] MEDS: ASPIRIN (EC) 81 MG TAB PO (09:47)
[2017-06-02] MEDS: LEVETIRACETAM 500 MG TAB PO ×2 (09:48→20:28)
[2017-06-02] MEDS: TOPIRAMATE 100 MG TAB PO ×2 (09:48→20:29)
[2017-06-02] MEDS: PHENYTOIN 100 MG CAP PO ×2 (09:48→20:28)
[2017-06-02] MEDS: LOSARTAN 50 MG TAB PO (09:49)
[2017-06-03] MEDS: LEVOTHYROXINE 50 MCG TAB PO ×2 (06:09→08:38)
[2017-06-03] MEDS: TOPIRAMATE 100 MG TAB PO ×2 (08:38→20:40)
[2017-06-03] MEDS: PHENYTOIN 100 MG CAP PO ×2 (08:38→20:40)
[2017-06-03] MEDS: ASPIRIN (EC) 81 MG TAB PO (08:38)
[2017-06-03] MEDS: LEVETIRACETAM 500 MG TAB PO ×2 (08:38→20:39)
[2017-06-03] MEDS: LOSARTAN 50 MG TAB PO (08:38)
[2017-06-03] MEDS: LORAZEPAM 2 MG INJ IV (12:16)
[2017-06-04] MEDS: ACETAMINOPHEN 325 MG TAB PO ×2 (01:35→19:50)
[2017-06-04] MEDS: LOSARTAN 50 MG TAB PO (08:46)
[2017-06-04] MEDS: PHENYTOIN 100 MG CAP PO ×2 (08:47→19:50)
[2017-06-04] MEDS: LEVOTHYROXINE 50 MCG TAB PO (08:47)
[2017-06-04] MEDS: ASPIRIN (EC) 81 MG TAB PO (08:47)
[2017-06-04] MEDS: TOPIRAMATE 100 MG TAB PO ×2 (08:47→19:49)
[2017-06-04] MEDS: LEVETIRACETAM 500 MG TAB PO ×2 (08:47→19:49)
[2017-06-04] MEDS: LORAZEPAM 2 MG INJ IV ×2 (11:39→23:43)
[2017-06-04] MEDS: morphine LIQ (10 MG/5 ML) CUP PO (23:33)
[2017-06-05] MEDS: TOPIRAMATE 100 MG TAB PO (09:31)
[2017-06-05] MEDS: PHENYTOIN 100 MG CAP PO (09:31)
[2017-06-05] MEDS: LEVETIRACETAM 500 MG TAB PO (09:31)
[2017-06-05] MEDS: ASPIRIN (EC) 81 MG TAB PO (09:31)
[2017-06-05] MEDS: LOSARTAN 50 MG TAB PO (09:32)
[2017-06-05] MEDS: LEVOTHYROXINE 50 MCG TAB PO (09:33)
[2017-06-05] MEDS: LORAZEPAM 2 MG INJ IV (12:31)
== END 2017-06-05 18:57 | disposition short-term general hospital (02) | DRG 101 ==
LOC: TEL 05-29 05:18 → E/R 02:08 → PP2 05-26 20:20 → MS2 05-29 19:34 → MS4 05:24
PROVIDERS: Internal Medicine
DX: G40.911 Epilepsy, unspecified, intractable, with status epilepticus (principal); E87.0 Hyperosmolality and hypernatremia; I10 Essential (primary) hypertension; E03.9 Hypothyroidism, unspecified; Z86.73 Personal history of transient ischemic attack (TIA), and cerebral infarction without residual deficits
CPT/HCPCS: 36415; 70450; 71045; 80048; 80053; 80061; 80185; 82962; 83036; 83735; 84100; 84443; 85025; 92610; 93005; 95819; 96374; 96375; 96376; 97116; 97162; 97530; 99285-25